=== PATIENT | female | born 1960 | race Hispanic/Latino ===

== ENCOUNTER → 2019-03-23 | Day surgery (SDC) | payer BC ==
[~2019-03-23] MED LIST: FENTANYL CITRATE/PF 100MCG/2 ML INJ ONE; MIDAZOLAM HCL 2 MG/2 ML VIAL ONE; OMEPRAZOLE40 MG PO; OR PHACO EYE KIT ONE; PRAVASTATIN SOD40 MG PO; PREOP PHACO EYE KIT ONE; RANITIDINE HCL300 MG PO
[2019-03-23 13:30] VITALS: BP 125/59
== END | disposition home or self-care (01) ==
LOC: OR 09:45
PROVIDERS: ATTEND Ophthalmology
DX: H25.12 Age-related nuclear cataract, left eye (principal); G47.33 Obstructive sleep apnea (adult) (pediatric); I10 Essential (primary) hypertension; E78.5 Hyperlipidemia, unspecified; F32.9 Major depressive disorder, single episode, unspecified; F41.9 Anxiety disorder, unspecified; Z88.1 Allergy status to other antibiotic agents
CPT/HCPCS: 66984; J2250; J3010; V2632

== ENCOUNTER 2022-09-23 13:27 | Emergency (ER) | payer BC ==
[~2022-09-23] VITALS: Ht 162.6 cm; Wt 75.3 kg
[~2022-09-23 13:27] MED LIST changes: -FENTANYL CITRATE/PF 100MCG/2 ML INJ ONE; -MIDAZOLAM HCL 2 MG/2 ML VIAL ONE; -OR PHACO EYE KIT ONE; -PREOP PHACO EYE KIT ONE
[2022-09-23] MEDS ORDERED: LOSARTAN POTAS100 MG PO (13:47)
[2022-09-23] MEDS ORDERED: KETOROLAC TROMETHAMINE 30 MG/ML VIAL IV STA (15:02)
[2022-09-23] MEDS ORDERED: ONDANSETRON HCL INJ 2MG/ML 2ML 2 MG/ML VIAL IV STA (15:02)
[2022-09-23] MEDS ORDERED: FAMOTIDINE 20 MG/2 ML VIAL IV STA (15:02)
[2022-09-23] MEDS ORDERED: SODIUM CHLORIDE 0.9% 1000ML 1,000 ML IV SCH (15:15)
[2022-09-23] MEDS ORDERED: ONDANSETRON HCL INJ 2MG/ML 2ML 2 MG/ML VIAL ONE (15:22)
[2022-09-23] MEDS ORDERED: SODIUM CHLORIDE 0.9% 1000ML 1,000 ML ONE (15:23)
[2022-09-23] MEDS ORDERED: FAMOTIDINE 20 MG/2 ML VIAL IV ONE (15:23)
[2022-09-23] MEDS ORDERED: KETOROLAC TROMETHAMINE 30 MG/ML VIAL ONE (15:23)
[2022-09-23] MEDS ORDERED: IOPAMIDOL 370 MG/ML 100 ML INFUS..BTL INJ ONE (15:24)
[2022-09-23] MEDS ORDERED: ONDANSETRON ODT4 MG PO (17:08)
[2022-09-23] MEDS ORDERED: DICYCLOMINE HCL20 MG PO (17:08)
== END 2022-09-23 17:17 | disposition home or self-care (01) ==
LOC: FSED 13:34
DX: R10.31 Right lower quadrant pain (principal); K21.9 Gastro-esophageal reflux disease without esophagitis; R11.0 Nausea; I10 Essential (primary) hypertension; E78.5 Hyperlipidemia, unspecified
CPT/HCPCS: 74177; 80048; 80076; 81003; 85025; 96374; 96375; 99284; J1885; J2405; J7030; Q9967

== ENCOUNTER 2024-01-14 11:37 | Emergency (ER) | payer MEDICARE, OTHER ==
[~2024-01-14] VITALS: Ht 162.6 cm; Wt 81.6 kg
[~2024-01-14 11:37] MED LIST changes: +DICYCLOMINE HCL20 MG PO; +LOSARTAN POTAS100 MG PO; +ONDANSETRON ODT4 MG PO
[2024-01-14 11:55] VITALS: PULSE 92; RESP 18; TEMP 98.2; O2SAT 97
== END 2024-01-14 13:01 | disposition home or self-care (01) ==
LOC: FSED 11:46
DX: R05.9 Cough, unspecified (principal); J06.9 Acute upper respiratory infection, unspecified; H69.83 Other specified disorders of Eustachian tube, bilateral; I10 Essential (primary) hypertension; E78.5 Hyperlipidemia, unspecified; K21.9 Gastro-esophageal reflux disease without esophagitis; Z11.52 Encounter for screening for COVID-19
CPT/HCPCS: 0223U; 83518; 87400; 99283